=== PATIENT | male | born 1950 | race Hispanic/Latino ===

== ENCOUNTER 2020-01-22 05:37 | Emergency (ER) | payer MEDICARE, OTHER ==
--- NOTE | 2020-01-22 05:44 | Emergency Department Report ---
<MIRIAN BOOGIE - Last Filed: 01/22/20 05:40> ED CPR HPI - General Stated Complaint: CARDIAC ARREST Time Seen by Provider: 01/22/20 05:39 - History of Present Illness Initial Comments: Patient is 69 years old male brought to the emergency room via EMS from home in a full cardiac arrest, CPR in progress. EMS stated that call came around 4:50 AM that patient is not responding. EMS stated that upon arrival to the patient home patient is not breathing with no spontaneous heart tone. ACLS immediately initiated by EMS and patient intubated. Initial rhythm showed asystole. EMS stated that patient rhythm changed to V. fib and patient was shocked twice and given amiodarone with no return of circulation. Patient has been given for milligram of epinephrine prior to coming to the emergency room. Upon arrival to the ER, ACLS protocol continued and patient received 2 mg of epinephrine, bicarb. ET tube confirmed by good breath on both sides and capnometry. Unfortunately patient remained in asystole. Patient pronounced at 5:34 AM. No family available at this moment. Total resuscitation time is 30 minutes. For further information please refer to code sheet. MD Complaint: collapsed during rest Place: home Bystander CPR Performed: No Initial Findings in the Field: no respirations, no pulse ROSC in the Field: No Associated Injuries: No Treatments Prior to Arrival: intubation, defribrillated shocks # (3), epinephrine mgs # (4), amiodarone - Related Data Allergies Allergy/AdvReac Type Severity Reaction Status Date / Time Unable to Assess Allergy Unverified 01/22/20 05:40 ED Review of Systems Comment: Unobtainable due to pts medical conditions ED Physical Exam - General General appearance: other (CPR in progress) - Head Head exam: Present: atraumatic - Eye Pupils: Present: other (4 mm, dilated and nonreactive.) - Respiratory Respiratory exam: Present: other (No spontaneous breathing.) - Cardiovascular Cardiovascular Exam: Present: other (No spontaneous heart tones.) - Neurological Exam Neurological exam: Present: other (CPR in progress.) Critical Care Time: Yes Critical care time in (mins) excluding proc time.: 30 ED Disposition Clinical Impression: Cardiopulmonary arrest Disposition: DC-20 Is pt being admited?: No Condition: Stable <HORACIO CURRIE - Last Filed: 01/22/20 07:25> ED Review of Systems ROS: Stated complaint: CARDIAC ARREST Other details as noted in HPI ED Medical Decision Making - Medical Decision Making I performed notification upon 's arrival to the emergency department. Mr. Jiménez has had a slow health decline over the last year. He has had hoarse voice for quite some time. He has a history of hypertension. He recently passed a pre-evaluation for cataract surgery which was scheduled next week. I have also informed [facility] of the . Critical care attestation.: If time is entered above; I have spent that time in minutes in the direct care of this critically ill patient, excluding procedure time. ED Disposition Is pt being admited?: No Does the pt Need Aspirin: No
[2020-01-22] MEDS ORDERED: EPINEPHrine 1 MG/10 ML SYRINGE ONE (05:52)
[2020-01-22] MEDS ORDERED: SODIUM BICARB 8.4% 50 MEQ/50 ML SYRINGE IV ONE (05:52)
== END 2020-01-22 06:00 ==
LOC: ED 05:37
DX: I46.9 Cardiac arrest, cause unspecified (principal)
CPT/HCPCS: 92950; 99285; J0171